=== PATIENT | female | born 1995 | race Hispanic/Latino ===

== ENCOUNTER 2019-01-04 15:04 | Emergency (ER) | payer MEDICARE ==
[~2019-01-04] VITALS: Ht 152.4 cm; Wt 51.7 kg
--- OUTSIDE RECORDS SUMMARY | 2019-01-04 15:07 | XMS REPORT ---
Author Author [facility] Address Unknown Phone Unavailable Care Team Providers Care Assistant Casino Shift Manager Name Role Phone Unavailable Unavailable Payers Payer Name Policy Type Policy Number Effective Date Expiration Date Problems This patient has no known problems. Allergies, Adverse Reactions, Alerts Allergy Name Allergy Type Status Severity Reaction(s) Onset Date Inactive Date Treating Clinician Comments No Known Allergies DA Active U 2018-08-24 00:00:00 No Known Allergies DA Active U 2016-02-05 00:00:00 Medications This patient has no known medications.
--- OUTSIDE RECORDS SUMMARY | 2019-01-04 15:07 | XMS REPORT | Clinical Summary ---
Author Author [facility] Address Unknown Phone Unavailable Care Team Providers Care Benefits Specialist Name Role Phone Rasta Pierce MD PCP Allergies No Known Allergies Medications End Date Status Medication Sig Dispensed Refills Start Date Active Take 1 tablet 0 vit,[id number] 29 by mouth mg iron- 1 mg tablet per daily. tablet 09/20/2018 ibuprofen (ADVIL,MOTRIN) Take 1 tablet 30 tablet 0 600 MG tablet (600 mg 9 total) by mouth every 6 (six) hours as needed (Cramping, Laceration or Incision Pain) for up to 30 days. Active Problems Problem Noted Date Anemia, unspecified 08/19/2018 08/19/2018 Encounters Care Team Description Date Type Specialty Jocelyn Perez MD 08/19/2018 [facility] Ob[facility]etrics and [facility]ne[facility] - Encounter 08/21/2018 Nimco Carranza, DO Dyspnea, unspecified type (Primary Dx) 04/24/2018 Emergency Emergency Medicine after 01/03/2018 Immunizations Name Dates Previously Given Next Due Tdap 08/19/2018 Family History Medical History Relation Name Comments Diabetes Maternal Grandmother Relation Name Status Comments Maternal Grandmother Social History Date Tobacco Use Types Packs/Day Years Used Never Smoker Smokeless Tobacco: Never Used Alcohol Use Drinks/Week oz/Week Comments No Alcohol Habits Answer Date Recorded How often do you have a drink containing alcohol? Never 08/19/2018 How many drinks containing alcohol do you have on Not asked a typical day when you are drinking? How often do you have six or more drinks on one Not asked occasion? Sex Assigned at Date Recorded Not on file Industry Job Start Date Occupation Not on file Not on file Not on file Travel End Travel History Travel Start No recent travel history available. Last Filed Vital Signs Time Taken Vital Sign Reading 08/21/2018 8:30 AM LOW PRESSURE BOILER TENDER Blood Pressure 114/59 08/21/2018 8:30 AM LOW PRESSURE BOILER TENDER Pulse 72 08/21/2018 8:30 AM LOW PRESSURE BOILER TENDER Temperature 36.6 C (97.8 F) 08/21/2018 8:30 AM LOW PRESSURE BOILER TENDER Respiratory Rate 18 08/20/2018 12:29 AM LOW PRESSURE BOILER TENDER Oxygen Saturation 98% - Inhaled Oxygen - Concentration 08/19/2018 7:33 AM LOW PRESSURE BOILER TENDER Weight 64.9 kg (143 lb) 08/19/2018 7:33 AM LOW PRESSURE BOILER TENDER Height 152.4 cm (5') 08/19/2018 7:33 AM LOW PRESSURE BOILER TENDER Body Mass Index 27.93 Plan of Treatment Health Maintenance Due Date Last Done Comments CHLAMYDIA SCREENING 01/15/2019 01/15/2018 INFLUENZA VACCINE 02/06/2019 Procedures Comments Procedure Name Priority Date/Time Associated Diagnosis HC COMPLETE BLD COUNT Routine 08/20/2018 W/AUTO DIFF 5:58 AM LOW PRESSURE BOILER TENDER HIV 1, 2 ANTIBODY STAT 08/19/2018 9:04 AM LOW PRESSURE BOILER TENDER TYPE AND SCREEN, STAT 08/19/2018 OBSTETRICAL PATIENT 9:04 AM LOW PRESSURE BOILER TENDER SYPHILIS TREPONEMAL IGG STAT 08/19/2018 9:04 AM LOW PRESSURE BOILER TENDER HEPATITIS B SURFACE STAT 08/19/2018 ANTIGEN 9:04 AM LOW PRESSURE BOILER TENDER HC COMPLETE BLD COUNT STAT 08/19/2018 W/AUTO DIFF 9:04 AM LOW PRESSURE BOILER TENDER URINE DRUGS OF ABUSE STAT 08/19/2018 SCREEN 7:50 AM LOW PRESSURE BOILER TENDER URINALYSIS SCREEN AND STAT 08/19/2018 MICROSCOPY, WITH REFLEX 7:50 AM LOW PRESSURE BOILER TENDER TO CULTURE URINE CULTURE STAT 08/19/2018 7:50 AM LOW PRESSURE BOILER TENDER CBC WITH PLATELET AND Routine 08/10/2018 DIFFERENTIAL RPR TITER WITH REFLEX TO Routine 08/10/2018 CONFIRMATION RPR TITER WITH REFLEX TO Routine 08/10/2018 CONFIRMATION BETA STREP SCREEN CULTURE Routine 08/01/2018 WITH MIMS BROTH CBC WITH PLATELET AND Routine 06/03/2018 DIFFERENTIAL XR CHEST 2 VW STAT 04/24/2018 7:24 PM CDT ESTIMATED GFR STAT 04/24/2018 7:03 PM CDT HCG QUANTITATIVE, SERUM STAT 04/24/2018 7:03 PM CDT CREATINE KINASE, TOTAL STAT 04/24/2018 (CPK) 7:03 PM CDT TROPONIN STAT 04/24/2018 7:03 PM CDT B NATRIURETIC PEPTIDE STAT 04/24/2018 7:03 PM CDT D-DIMER STAT 04/24/2018 7:03 PM CDT BASIC METABOLIC PANEL STAT 04/24/2018 7:03 PM CDT HC COMPLETE BLD COUNT STAT 04/24/2018 W/AUTO DIFF 7:03 PM CDT ECG 12-LEAD STAT 04/24/2018 6:58 PM CDT ECG ED PRELIMINARY Routine 04/24/2018 INTERPRETATION 6:44 PM CDT RUBELLA AB IGG Routine 01/28/2018 HIV 1, 2 ANTIBODY Routine 01/15/2018 RPR TITER WITH REFLEX TO Routine 01/15/2018 CONFIRMATION HEPATITIS B SURFACE Routine 01/15/2018 ANTIGEN CHLAMYDIA CULTURE Routine 01/15/2018 GONORRHOEAE CULTURE Routine 01/15/2018 after 01/03/2018 Results * CBC with platelet and differential (08/20/2018 5:58 AM LOW PRESSURE BOILER TENDER) Only the most recent of 5 results within the time period is included. WBC 9.0 4.2 - 11.0 k/uL [facility] RBC 3.40 (L) 4.04 - 5.86 m/uL [facility] HGB 9.0 (L) 11.5 - 15.3 g/dL [facility] HCT 29.6 (L) 34.0 - 45.0 % [facility] MCV 87.1 80.0 - 98.0 fL [facility] MCH 26.5 (L) 27.0 - 34.0 pg [facility] MCHC 30.4 (L) 31.5 - 36.5 g/dL [facility] RDW - SD 42.6 37.0 - 51.0 fL [facility] MPV 13.9 (H) 7.4 - 10.4 fL [facility] Platelet count 97 (L) 150 - 400 k/uL [facility] Nucleated RBC 0.00 /100 WBC [facility] Neutrophils 66.4 (H) 36.0 - 66.0 % [facility] Lymphocytes 22.3 (L) 24.0 - 44.0 % [facility] Monocytes 9.9 (H) 0.0 - 6.0 % [facility] Eosinophils 0.6 0.0 - 6.0 % [facility] Basophils 0.1 0.0 - 1.2 % [facility] Immature 0.7 0.0 - 1.0 % [place] granulocytes [facility] Specimen Blood Performing Organization Address City/State/Zipcode Phone Number [facility] [address] [place] [address] PATHOLOGY AND GENOMIC MEDICINE [facility] [address] * Syphilis treponemal IgG (08/19/2018 9:04 AM LOW PRESSURE BOILER TENDER) Syphilis Non-reactiveComment: Non-reactive [place] treponemal IgG Non-reactive: No serological [facility] evidence of Syphilis infection HOSPITAL Specimen Serum Performing Organization Address City/State/Zipcode Phone Number [facility] DEPARTMENT OF [address] [place] [address] PATHOLOGY AND GENOMIC MEDICINE [facility] [address] [place] [address] HOSPITAL * Type and screen, obstetrical patient (08/19/2018 9:04 AM LOW PRESSURE BOILER TENDER) Pathologist [facility] [place] ABO grouping O [facility] Rh type POS [facility] Antibody screen NEG [place] (gel) [facility] Specimen Blood Performing Organization Address City/State/Zipcode Phone Number [facility] OF [address] [place] [address] PATHOLOGY AND GENOMIC MEDICINE [facility] [address] * HIV 1, 2 antibody (08/19/2018 9:04 AM LOW PRESSURE BOILER TENDER) Only the most recent of 2 results within the time period is included. [facility] HIV 1, 2 Non-Reactive Non-reactive [place] antibody Comment: [facility] Starting from October 05 2015, [facility] 4th generation HIV screening HOSPITAL and confirmation assays are in use at [facility], consistent with the CDC-recommended algorithm. The screening test detects antibodies to HIV-1, HIV-2 and the p24 antigen. Positive screening results will be automatically reflexed to a HIV-1/HIV-2 differentiation assay. Indeterminant HIV-1 results will be further automatically reflexed to a nucleic acid test for detection of acute infection. Western blot will no longer be performed as a confirmation test. For a quick reference guide on the testing algorithm, please refer to: http://stacks.cdc.gov/view/cdc /57611. Specimen Blood Performing Organization Address City/[facility]/Zipcode Phone Number [facility] OF [address] [facility] [place] [address] PATHOLOGY AND GENOMIC MEDICINE [facility] [address] [place], [place] [id number] [place] [address] * Hepatitis B surface antigen (08/19/2018 9:04 AM LOW PRESSURE BOILER TENDER) Only the most recent of 2 results within the time period is included. [facility] Hepatitis B Non-reactive Non-reactive [place] surface Ag [facility] Specimen Blood Performing Organization Address City/State/Zipcode Phone Number [facility] OF [address] [place] [address] PATHOLOGY AND GENOMIC MEDICINE [place] [id number] [address] * Urinalysis screen and microscopy, with reflex to culture (08/19/2018 7:50 AM LOW PRESSURE BOILER TENDER) Specimen site Catheterized [facility] Color, UA Straw [facility] Appearance, UA Clear [facility] Specific 1.010 1.001 - 1.035 [place] gravity, [facility] pH, UA 8.0 5.0 - 8.5 [facility] Protein, UA Negative Negative [facility] Glucose, UA Negative Negative [facility] Ketones, UA Negative Negative [facility] Bilirubin, UA Negative Negative [facility] Blood, UA Large (A) Negative [facility] Nitrite, UA Negative Negative [facility] Urobilinogen, Negative <2.0 [facility] Leukocyte Negative Negative [place] esterase, UA [facility] Epithelial Moderate /HPF [place] cells, UA [facility] WBC, UA 2 0 - 5 /HPF [facility] RBC, UA >200 (H) 0 - 5 /HPF [facility] Bacteria, UA None seen None seen [facility] Yeast, UA None seen [facility] Yeast with None seen [place] [facility] Specimen Urine Performing Organization Address City/State/Zipcode Phone Number [facility] [address] [place] [phone] PATHOLOGY AND GENOMIC MEDICINE [place] [phone] [address] * Urine drugs of abuse screen (08/19/2018 7:50 AM LOW PRESSURE BOILER TENDER) Amphetamine Negative [place] screen, urine [facility] Barbiturate Negative [place] screen, urine [facility] Benzodiazepine Negative [place] screen, urine [facility] Cannabinoid Negative [place] screen, urine [facility] Cocaine screen, Negative [place] urine [facility] Methadone Negative [place] metabolite [facility] (EDDP), urine [facility] Opiates screen, Negative [place] urine [facility] Phencyclidine Negative [place] screen, urine [facility] Specimen Urine Performing Organization Address City/[facility]/Zipcode Phone Number [facility] OF [address] [place] [phone] PATHOLOGY AND GENOMIC MEDICINE [facility] [address] * Urine culture (08/19/2018 7:50 AM LOW PRESSURE BOILER TENDER) Urine culture SEE COMMENTComment: [place] Bacteriuria screen negative. [facility] Specimen Performing Organization Address City/[facility] Phone Number [facility] [place] [address] PATHOLOGY AND GENOMIC MEDICINE [facility] [address] * RPR titer with reflex to confirmation (08/10/2018) Only the most recent of 3 results within the time period is included. RPR (dx) w/refl Negative EXTERNAL LAB titer and NON-INTERFACED confirmatory testing Specimen Blood Performing Organization Address [facility] [place] [facility] Phone Number EXTERNAL LAB NON-INTERFACED * Beta strep screen culture with mims broth (08/01/2018) Strep gp B Negative EXTERNAL LAB culture NON-INTERFACED Specimen Vaginal Performing Organization Address [facility] [place] [facility] Phone Number EXTERNAL LAB NON-INTERFACED * XR Chest 2 Vw (04/24/2018 7:24 PM CDT) Specimen Narrative Performed At EXAMINATION:XR CHEST 2 VW RADIANT CLINICAL HISTORY:Shortness of breath TECHNIQUE:XR CHEST 2 VW COMPARISON:None. FINDINGS: Lines/tubes:None. Heart and mediastinum:Unremarkable Lungs:There is subsegmental atelectasis at the medial lung bases. There is no focal consolidation. There is no evidence of pulmonary edema. Pleura:There is no pleural effusion. There is no pneumothorax. Bones and Soft Tissues:Unremarkable. IMPRESSION: No acute cardiopulmonary abnormality. [facility]-[id number] Procedure Note Interface, Radiology Results Incoming - 04/24/2018 7:30 PM CDT EXAMINATION: XR CHEST 2 VW CLINICAL HISTORY: Shortness of breath TECHNIQUE: XR CHEST 2 VW COMPARISON: None. FINDINGS: Lines/tubes: None. Heart and mediastinum: Unremarkable Lungs: There is subsegmental atelectasis at the medial lung bases. There is no focal consolidation. There is no evidence of pulmonary edema. Pleura: There is no pleural effusion. There is no pneumothorax. Bones and Soft Tissues: Unremarkable. IMPRESSION: No acute cardiopulmonary abnormality. [facility]-[id number] Performing Organization Address City/[facility]/Zipcode Phone Number [facility] [address] [place] [address] * Estimated GFR (04/24/2018 7:03 PM CDT) [facility] Estimated GFR >=90 mL/min/1.73 m2 [facility] Comment: OF PATHOLOGY CatergoryUnitsInte AND GENOMIC rpretation MEDICINE G1 >=90 Normal or high G2 60-89Mildly decreased W3h38-27 Mildly to moderately decreased P1m51-61 Moderately to severely decreased G4 15-29Severely decreased G5 <15Kidney failure The eGFR was calculated using the Chronic Kidney Disease Epidemiology Collaboration (CKD-EPI) equation. Interpretation is based on recommendations of the National Kidney Foundation-Kidney Disease Outcomes Quality Initiative (NKF-KDOQI) published in 2014. Specimen Plasma specimen Performing Organization Address [facility] Mex[facility]ode Phone Number [address] [place] [address] PATHOLOGY AND [employer] [facility] * Troponin (04/24/2018 7:03 PM CDT) [facility] Troponin <0.30 0.00 - 0.30 ng/mL [facility] Comment: OF PATHOLOGY 0.11 - 1.49 AND [employer] ng/mlMiy MEDICINE indicate increased risk of acute coronary syndrome. >=1.5 ng/ml Consistent with acute myocardial infarction. The diagnostic value of a single normal or non-diagnostic result is questionable.Serial samples at 2-6 hour intervals are required to rule out acute myocardial injury. Specimen Plasma specimen Performing Organization Address City/[facility]/Zipcode Phone Number [facility] OF [address] [facility] [place] [address] PATHOLOGY AND [employer] MEDICINE * D-dimer (04/24/2018 7:03 PM CDT) [facility] D-dimer 0.89 (H) 0.00 - 0.40 ug/mL [facility] Comment: FEU OF PATHOLOGY Units are ug/ml Fibrinogen AND GENOMIC Equivalent Unit. MEDICINE When combined with low clinical probability, D-dimer results of less than 0.5 ug/ml FEU have a good negativepredictive value in excluding PE or DVT. For D-dimer results greater than 0.5ug/ml FEU further testing is indicated if PE or DVT is suspectedclinically. Elevated D-dimer results have been reported in DVT, PE, and DIC cases and may indicate the presence of a clot. D-dimer results may be elevated due to old age, , inflammatory diseases, trauma, post-operative states, sepsis, and malignancies. Specimen Blood Performing Organization Address [facility] [place] [address] PATHOLOGY AND [facility] MEDICINE * hCG quantitative, serum (04/24/2018 7:03 PM CDT) [facility] hCG 2,925 (H) 0 - 5 mIU/mL [facility] quantitative, Comment: OF PATHOLOGY serum EXPECTED RANGE: AND GENOMIC >25 mIU/mL seen in . MEDICINE For values 1-24: Indeterminate result.Recommend retesting in 72 hours. HCG doubling time for normal is about 2.5 days. Approx Gestational Age Approx. HCG Conc. (mIU/mL) 0-2 weeks 0-500 2-3 weeks 100-1000 3-4 weeks 500-6000 1-3 months 5000-200,000 2nd Trimester 5000-50,000 3rd Trimester 5000-50,000 Specimen Blood Performing Organization Address City/[facility]/Zipcode Phone Number [facility] OF [address] [place] [address] PATHOLOGY AND [facility] * B natriuretic peptide (04/24/2018 7:03 PM CDT) [facility] BNP <3 0 - 100 pg/mL [facility] OF PATHOLOGY AND [facility] Specimen Blood Performing Organization Address City/[facility] [place] [address] PATHOLOGY AND [facility] MEDICINE * Creatine kinase, total (CPK) (04/24/2018 7:03 PM CDT) [facility] Creatine kinase 39 26 - 192 U/L [facility] OF PATHOLOGY AND GENOMIC MEDICINE Specimen Plasma specimen Performing Organization Address City/[facility]/Zipcode Phone Number [facility] [address] [place] [address] PATHOLOGY AND GENOMIC MEDICINE * Basic metabolic panel (04/24/2018 7:03 PM CDT) [facility] Sodium 138 135 - 150 mEq/L [facility] OF PATHOLOGY AND GENOMIC MEDICINE Potassium 3.6 3.5 - 5.0 mEq/L [facility] OF PATHOLOGY AND GENOMIC MEDICINE Chloride 102 98 - 112 mEq/L [facility] OF PATHOLOGY AND GENOMIC MEDICINE CO2 23 (L) 24 - 31 mmol/L [facility] OF PATHOLOGY AND GENOMIC MEDICINE Anion gap 13@ANIO 7 - 15 mEq/L [facility] OF PATHOLOGY AND GENOMIC MEDICINE BUN 7 7 - 18 mg/dL [facility] OF PATHOLOGY AND GENOMIC MEDICINE Creatinine 0.40 (L) 0.50 - 0.90 mg/dL [facility] OF PATHOLOGY AND GENOMIC MEDICINE Glucose 79 65 - 100 mg/dL [facility] OF PATHOLOGY AND GENOMIC MEDICINE Calcium 9.2 8.3 - 10.2 mg/dL [facility] OF PATHOLOGY AND GENOMIC MEDICINE Specimen Plasma specimen Performing Organization Address [facility] Mex[facility]ode Phone Number [address] [address] PATHOLOGY AND [employer] MEDICINE * ECG 12 lead (04/24/2018 6:58 PM CDT) [facility] Ventricular 83 [facility] MUSE rate Atrial rate 83 [facility] WA interval 150 [facility] QRSD interval 78 [facility] QT interval 340 [facility] QTC interval 399 [facility] P axis 1 56 [facility] QRS axis 1 -4 [facility] T wave axis 39 [facility] EKG impression Normal sinus rhythm-Low [facility] voltage QRS-Cannot rule out Anterior infarct , age undetermined-Abnormal ECG-No previous ECGs available- Specimen Performing Organization Address City/[facility]/Zipcode Phone Number [facility] MUSE [address] [place] [address] * ECG ED Preliminary Interpretation - NOT AN ORDER (04/24/2018 6:44 PM CDT) Narrative Performed At Nimco Carranza DO 04/30/20189:08 AM ECG ED Preliminary Interpretation - Not an Order Performed by: NIMCO CARRANZA Authorized by: NIMCO CARRANZA ECG reviewed by ED Physician in the absence of a chief internal auditor: yes Interpretation: Interpretation: normal Rate: ECG rate:83 ECG rate assessment: normal Rhythm: Rhythm: sinus rhythm Ectopy: Ectopy: none QRS: QRS axis:Normal Conduction: Conduction: normal ST segments: ST segments:Normal T waves: T waves: normal * Rubella Ab IgG (01/28/2018) Rubella IgG Immune EXTERNAL LAB antibody NON-INTERFACED Specimen Blood Performing Organization Address [facility] [place] Phone Number EXTERNAL LAB NON-INTERFACED * Chlamydia culture (01/15/2018) Chlamydia Negative EXTERNAL LAB culture isolate NON-INTERFACED Specimen Swab Performing Organization Address [facility] [place] Phone Number EXTERNAL LAB NON-INTERFACED * Gonorrhoeae culture (01/15/2018) Gonorrhoeae Negative EXTERNAL LAB culture isolate NON-INTERFACED Performing Organization Address [facility] [place] Phone Number EXTERNAL LAB NON-INTERFACED after 01/03/2018 Insurance Type Payer Benefit Subscriber ID Effective Phone Address Plan / Dates Group [employer] userADgents COM HL xxxxxxxxx 2017-P [facility] Advance Directives Patient has advance care planning documents, and code status on file. For more i nformation, please contact: Yuri Mensah [address] [place] [address] Date Inactivated Comments Code Status Date Activated 08/21/2018 4:10 PM Full Code 08/19/2018 8:10 AM Code Status decision reached by: Patient 08/19/2018 8:10 AM Full Code 08/19/2018 7:53 AM Code Status decision reached by: Patient
== END 2019-01-04 15:13 | disposition left against medical advice (07) ==
LOC: ER 15:04
DX: R51 Headache (principal)

== ENCOUNTER 2019-02-25 18:14 | Emergency (ER) | payer MEDICARE, OTHER ==
[~2019-02-25] VITALS: Ht 152.4 cm; Wt 51.7 kg
--- OUTSIDE RECORDS SUMMARY | 2019-02-25 18:17 | XMS REPORT | Clinical Summary ---
Author Author [facility] Organization [facility] Address Unknown Phone Unavailable Care Team Providers Care Allergy Nurse Name Role Phone Rasta Pierce MD PCP Allergies No Known Allergies Medications End Date Status Medication Sig Dispensed Refills Start Date Active Take 1 tablet 0 vit,[id number] 29 by mouth mg iron- 1 mg [...] Date Type Specialty Jocelyn Perez MD 08/19/2018 [facility] Obstetrics and Gynecology - Encounter 08/21/2018 Nimco Carranza, DO Dyspnea, unspecified type (Primary Dx) 04/24/2018 Emergency Emergency Medicine after 02/24/2018 Immunizations Name Administration Dates Next Due Tdap 08/19/2018 Family History Medical History Relation Name Comments Diabetes Maternal Grandmother Relation Name Status Comments Maternal Grandmother Social History Date Tobacco Use Types Packs/Day Years Used Never Smoker Smokeless Tobacco: Never Used Drinks/Week oz/Week Comments Alcohol Use No Alcohol Habits Answer Date Recorded How [...] travel history available. Last Filed Vital Signs Reading Time Taken Comments Vital Sign 114/59 08/21/2018 8:30 AM MOBILE TESTER Blood Pressure 72 08/21/2018 8:30 AM MOBILE TESTER Pulse 36.6 C (97.8 F) 08/21/2018 8:30 AM MOBILE TESTER Temperature 18 08/21/2018 8:30 AM MOBILE TESTER Respiratory Rate 98% 08/20/2018 12:29 AM MOBILE TESTER Oxygen Saturation - - Inhaled Oxygen Concentration 64.9 kg (143 lb) 08/19/2018 7:33 AM MOBILE TESTER Weight 152.4 cm (5') 08/19/2018 7:33 AM MOBILE TESTER Height 27.93 08/19/2018 7:33 AM MOBILE TESTER Body Mass Index Plan of Treatment Health Maintenance Due Date Last Done Comments CHLAMYDIA SCREENING 01/15/2019 01/15/2018 INFLUENZA VACCINE 02/06/2019 Procedures Comments Procedure Name Priority Date/Time Associated Diagnosis HC COMPLETE BLD COUNT Routine 08/20/2018 W/AUTO DIFF 5:58 AM MOBILE TESTER HIV 1, 2 ANTIBODY STAT 08/19/2018 9:04 AM MOBILE TESTER TYPE AND SCREEN, STAT 08/19/2018 OBSTETRICAL PATIENT 9:04 AM MOBILE TESTER SYPHILIS TREPONEMAL IGG STAT 08/19/2018 9:04 AM MOBILE TESTER HEPATITIS B SURFACE STAT 08/19/2018 ANTIGEN 9:04 AM MOBILE TESTER HC COMPLETE BLD COUNT STAT 08/19/2018 W/AUTO DIFF 9:04 AM MOBILE TESTER URINE DRUGS OF ABUSE STAT 08/19/2018 SCREEN 7:50 AM MOBILE TESTER URINALYSIS SCREEN AND STAT 08/19/2018 MICROSCOPY, WITH REFLEX 7:50 AM MOBILE TESTER TO CULTURE URINE CULTURE STAT 08/19/2018 7:50 AM MOBILE TESTER CBC WITH PLATELET AND Routine 08/10/2018 DIFFERENTIAL [...] PRELIMINARY Routine 04/24/2018 INTERPRETATION 6:44 PM CDT after 02/24/2018 Results * CBC with platelet and differential (08/20/2018 5:58 AM MOBILE TESTER) Only the most recent of 5 results within the time period is included. WBC 9.0 4.2 - 11.0 k/uL [facility] RBC 3.40 (L) 4.04 - 5.86 m/uL [facility] HGB 9.0 (L) 11.5 - 15.3 g/dL [facility] HCT 29.6 (L) 34.0 - 45.0 % [facility] MCV 87.1 80.0 - 98.0 fL [facility] MCH 26.5 (L) 27.0 - 34.0 pg [facility] MCHC 30.4 (L) 31.5 - 36.5 g/dL [facility] RDW - SD 42.6 37.0 - 51.0 fL [facility] MPV 13.9 (H) 7.4 - 10.4 fL [facility] Platelet count 97 (L) 150 - 400 k/uL [facility] Nucleated RBC 0.00 /100 WBC [facility] Neutrophils 66.4 (H) 36.0 - 66.0 % [facility] Lymphocytes 22.3 (L) 24.0 - 44.0 % [facility] Monocytes 9.9 (H) 0.0 - 6.0 % [facility] Eosinophils 0.6 0.0 - 6.0 % [facility] Basophils 0.1 0.0 - 1.2 % [facility] Immature 0.7 0.0 - 1.0 % [place] granulocytes [facility] Specimen Blood Performing Organization Address City/[facility] [place] [address] PATHOLOGY AND GENOMIC MEDICINE [address] * Syphilis treponemal IgG (08/19/2018 9:04 AM MOBILE TESTER) Pathologist [facility] [place] Syphilis Non-reactiveComment: Non-reactive [place] treponemal IgG Non-reactive: No serological RESTORATIONIST evidence of Syphilis infection HOSPITAL Specimen Serum Performing Organization Address City/[facility]/Zipcode Phone Number [facility] DEPARTMENT [address] [place] [address] PATHOLOGY AND GENOMIC MEDICINE [address] * Type and screen, obstetrical patient (08/19/2018 9:04 AM MOBILE TESTER) ABO grouping O [facility] Rh type POS [facility] Antibody screen NEG [place] (gel) [facility] Specimen Blood Performing Organization Address City/[facility]/Zipcode Phone Number [facility] [address] [address] PATHOLOGY AND GENOMIC MEDICINE [place] [id number] [facility] [address] * HIV 1, 2 antibody (08/19/2018 9:04 AM MOBILE TESTER) Pathologist [facility] [place] HIV 1, 2 Non-Reactive Non-reactive [place] antibody Comment: [facility] Starting from October 05 2015, [facility] 4th generation HIV screening HOSPITAL and confirmation assays are in use at [facility], consistent with the CDC-recommended algorithm. [...] the testing algorithm, please refer to: http://stacks.cdc.gov/view/cdc /88655. Specimen Blood Performing Organization Address City/[facility]/Zipcode Phone Number [facility] OF [facility] [place] [address] PATHOLOGY AND GENOMIC MEDICINE [place] [id number] [address] * Hepatitis B surface antigen (08/19/2018 9:04 AM MOBILE TESTER) [facility] Hepatitis B Non-reactive Non-reactive [place] surface Ag [facility] Specimen Blood Performing Organization Address City/[facility]/Zipcode Phone Number [facility] OF [facility] [place] [address] PATHOLOGY AND GENOMIC MEDICINE [place] [phone] [facility] [address] * Urinalysis screen and microscopy, with reflex to culture (08/19/2018 7:50 AM MOBILE TESTER) Pathologist [facility] [place] Specimen site Catheterized [facility] Color, UA Straw [facility] Appearance, UA Clear [facility] Specific 1.010 1.001 - 1.035 [place] gravity, UA [facility] pH, UA 8.0 5.0 - 8.5 [facility] Protein, UA Negative Negative [facility] Glucose, UA Negative Negative [facility] Ketones, UA Negative Negative [facility] Bilirubin, UA Negative Negative [facility] Blood, UA Large (A) Negative [facility] Nitrite, UA Negative Negative [facility] Urobilinogen, Negative <2.0 [place] UA [facility] Leukocyte Negative Negative [place] esterase, UA [facility] Epithelial Moderate /HPF [place] cells, UA [facility] WBC, UA 2 0 - 5 /HPF [facility] RBC, UA >200 (H) 0 - 5 /HPF [facility] Bacteria, UA None seen None seen [facility] Yeast, UA None seen [facility] Yeast with None seen [facility] Specimen Urine Performing Organization Address City/[facility] Centercode Phone Number [facility] [place] [address] [place] [address] PATHOLOGY AND GENOMIC MEDICINE [place] [address] [address] * Urine drugs of abuse screen (08/19/2018 7:50 AM MOBILE TESTER) Pathologist [facility] [place] Amphetamine Negative [place] screen, urine [facility] Barbiturate Negative [place] screen, urine [facility] Benzodiazepine Negative [place] screen, urine [facility] Cannabinoid Negative [place] screen, urine [facility] Cocaine screen, Negative [facility] urine [facility] Methadone Negative [facility] metabolite [facility] (EDDP), urine [facility] Opiates screen, Negative [place] urine [facility] Phencyclidine Negative [place] screen, urine [facility] Specimen Urine Performing Organization Address City/[facility] Cent[facility]ode Phone Number [facility] [place] [address] [place] [address] PATHOLOGY AND GENOMIC MEDICINE [place] [address] [address] * Urine culture (08/19/2018 7:50 AM MOBILE TESTER) Pathologist [facility] [place] Urine culture SEE COMMENTComment: [place] Bacteriuria screen negative. [facility] Specimen Performing Organization Address [facility] Centercoct Phone Number [facility] OF [address] [place] [address] PATHOLOGY AND GENOMIC MEDICINE [facility] [address] [place], [place] [id number] [place] [address] * RPR titer with reflex to confirmation (08/10/2018) Only the most recent of 2 results within the time period is included. RPR (dx) w/refl Negative EXTERNAL LAB titer and NON-INTERFACED confirmatory testing Specimen Blood Performing Organization Address [facility] Centercode Phone Number EXTERNAL LAB NON-INTERFACED * Beta strep screen culture with mims broth (08/01/2018) Strep gp B Negative EXTERNAL LAB culture NON-INTERFACED Specimen Vaginal Performing Organization Address [facility] Phone Number EXTERNAL LAB NON-INTERFACED * XR [...] Soft Tissues:Unremarkable. IMPRESSION: No acute cardiopulmonary abnormality. [facility]-[id number] Procedure Note Hm Interface, Radiology Results Incoming - 04/24/2018 7:30 [...] Tissues: Unremarkable. IMPRESSION: No acute cardiopulmonary abnormality. [facility]-[id number] Performing Organization Address [facility]/Zipcode Phone Number [facility] [address] [place] [address] * Estimated GFR (04/24/2018 7:03 PM CDT) [facility] Estimated GFR >=90 mL/min/1.73 m2 [facility] Comment: OF PATHOLOGY CatergoryUnitsInte AND GENOMIC rpretation MEDICINE G1 >=90 Normal or high G2 60-89Mildly decreased [id number] Mildly to moderately decreased [id number] Moderately to severely decreased G4 15-29Severely decreased G5 <15Kidney failure The eGFR was calculated using the Chronic Kidney Disease Epidemiology Collaboration (CKD-EPI) equation. Interpretation is based on recommendations of the National Kidney Foundation-Kidney Disease Outcomes Quality Initiative (NKF-KDOQI) published in 2014. Specimen Plasma specimen Performing Organization Address City/State/Zipcode Phone Number [facility] OF [address] [facility] [place] [address] PATHOLOGY AND [facility] * Troponin (04/24/2018 7:03 PM CDT) [facility] Troponin <0.30 0.00 - 0.30 ng/mL [facility] Comment: OF PATHOLOGY 0.11 - 1.49 AND GENOMIC ng/mlMay MEDICINE indicate increased risk of acute coronary syndrome. >=1.5 ng/ml Consistent with acute myocardial infarction. The diagnostic value of a single normal or non-diagnostic result is questionable.Serial samples at 2-6 hour intervals are required to rule out acute myocardial injury. Specimen Plasma specimen Performing Organization Address City/State/Zipcode Phone Number [facility] OF [address] [facility]. [place] [id number] [place] [address] AND [facility] * D-dimer (04/24/2018 7:03 PM CDT) [facility] D-dimer 0.89 (H) 0.00 - 0.40 ug/mL [facility] Comment: FEU OF PATHOLOGY Units are [...] and malignancies. Specimen Blood Performing Organization Address [facility] [place] [address] PATHOLOGY AND GENOMIC MEDICINE * hCG quantitative, serum (04/24/2018 7:03 PM CDT) hCG 2,925 (H) 0 - 5 mIU/mL [facility] quantitative, Comment: OF PATHOLOGY serum EXPECTED [...] Trimester 5000-50,000 Specimen Blood Performing Organization Address [facility] [place] [address] PATHOLOGY AND GENOMIC MEDICINE * B natriuretic peptide (04/24/2018 7:03 PM CDT) Pathologist [facility] [place] BNP <3 0 - 100 pg/mL [facility] OF PATHOLOGY AND GENOMIC MEDICINE Specimen Blood Performing Organization Address [facility] [place] [address] PATHOLOGY AND GENOMIC MEDICINE * Creatine kinase, total (CPK) (04/24/2018 7:03 PM CDT) Pathologist [facility] [place] Creatine kinase 39 26 - 192 U/L [facility] OF PATHOLOGY AND GENOMIC MEDICINE Specimen Plasma specimen Performing Organization Address City/[facility] [place] [address] PATHOLOGY AND GENOMIC MEDICINE * Basic metabolic panel (04/24/2018 7:03 PM CDT) Sodium 138 135 - 150 mEq/L [facility] OF PATHOLOGY AND GENOMIC MEDICINE Potassium 3.6 3.5 - 5.0 mEq/L [facility] OF PATHOLOGY AND GENOMIC MEDICINE [place] 102 98 - 112 mEq/L [facility] OF PATHOLOGY AND GENOMIC MEDICINE CO2 23 (L) 24 - 31 mmol/L [facility] OF PATHOLOGY AND GENOMIC MEDICINE Anion gap 13@ANIO 7 - 15 mEq/L [facility] OF PATHOLOGY AND GENOMIC MEDICINE BUN 7 7 - 18 mg/dL [facility] OF PATHOLOGY AND GENOMIC MEDICINE Creatinine 0.40 (L) 0.50 - 0.90 mg/dL [facility] OF PATHOLOGY AND GENOMIC MEDICINE Glucose 79 65 - 100 mg/dL [facility] OF PATHOLOGY AND GENOMIC MEDICINE Calcium 9.2 8.3 - 10.2 mg/dL [facility] OF PATHOLOGY AND GENOMIC MEDICINE Specimen Plasma specimen Performing Organization Address City/State/[facility] Centercode Phone Number [facility] [address] [place] [address] PATHOLOGY AND GENOMIC MEDICINE * ECG 12 lead (04/24/2018 6:58 PM CDT) Ventricular 83 [facility] rate Atrial rate 83 [facility] DC interval 150 [facility] QRSD interval 78 [facility] QT interval 340 [facility] QTC interval 399 [facility] P axis 1 56 [facility] QRS axis 1 -4 [facility] T wave axis 39 [facility] EKG impression Normal sinus rhythm-Low [facility] voltage QRS-Cannot rule out Anterior infarct , age undetermined-Abnormal ECG-No previous ECGs available- Specimen Performing Organization Address City/[facility] Centercode Phone Number [facility] MUSE [address] [place] [address] * ECG ED Preliminary Interpretation - NOT AN ORDER (04/24/2018 6:44 PM CDT) Narrative Performed At Nimco Carranza DO 04/30/20189:08 AM ECG ED Preliminary Interpretation - Not an Order Performed by: NIMCO CARRANZA Authorized by: NIMCO CARRANZA ECG reviewed by ED Physician in the absence of a ash kier boiler: yes Interpretation: Interpretation: normal Rate: ECG rate:83 ECG rate assessment: normal Rhythm: Rhythm: sinus rhythm Ectopy: Ectopy: none QRS: QRS axis:Normal Conduction: Conduction: normal ST segments: ST segments:Normal T waves: T waves: normal after 02/24/2018 Insurance Type Payer Benefit Subscriber ID Effective Phone Address Plan / Dates Group [facility] [employer] [facility] xxxxxxxxx 12/07/2017-P [facility]/[employer] [facility] Advance Directives For more information, please contact: [phone] Patient Vector Control Specialist Explanation Type Date Recorded Advance Directives, 04/24/2018 6:30 PM Living Will and Medical Power of Security Shift Supervisor Date Inactivated Comments Code Status Date Activated 08/21/2018 4:10 PM Full Code 08/19/2018 8:10 AM Code Status decision reached by: Patient 08/19/2018 8:10 AM Full Code 08/19/2018 7:53 AM Code Status decision reached by: Patient
--- NOTE | 2019-02-25 19:01 | NUR ---
SPOKE TO JAMES IN RAD, WILL CALL U/S AT THIS TIME
[2019-02-25 19:07] LABS: BASOPHILS % 0.2 % (0.0-1.0); EOSINOPHILS # (AUTO) 0.1 (0.0-0.4); EOSINOPHILS % 0.8 % (0.0-6.0); HEMATOCRIT 32.1 % (34.2-44.1); HEMOGLOBIN 11.1 g/dL (12.0-16.0); LYMPHOCYTES # (AUTO) 1.3 (1.0-3.2); LYMPHOCYTES % 19.8 % (18.0-39.1); MEAN CORPUSCULAR HEMOGLOBIN 29.6 pg (28-32); MEAN CORPUSCULAR HGB CONC 34.6 g/dL (31-35); MEAN CORPUSCULAR VOLUME 85.6 fL (81-99); MONOCYTES # (AUTO) 0.5 (0.2-0.8); MONOCYTES % 7.1 % (4.4-11.3); NEUTROPHILS # (AUTO) 4.5 (2.1-6.9); NEUTROPHILS % 71.8 % (38.7-80.0); PLATELET COUNT 119 x10e3/uL (140-360); RED BLOOD COUNT 3.75 x10e6/uL (3.6-5.1); RED CELL DISTRIBUTION WIDTH 13.3 % (11.7-14.4)
[2019-02-25 19:14] LABS: BILIRUBIN,URINE NEGATIVE (NEGATIVE); CLARITY,URINE CLEAR (CLEAR); COLOR,URINE YELLOW (YELLOW); KETONES,URINE NEGATIVE (NEGATIVE); LEUKOCYTE ESTERASE ,URINE TRACE (NEGATIVE); NITRITE,URINE NEGATIVE (NEGATIVE); PROTEIN,URINE DIPSTICK NEGATIVE (NEGATIVE); URINE UROBILINOGEN 0.2 mg/dL (0.2 - 1)
[2019-02-25 19:24] LABS: ALANINE AMINOTRANSFERASE 9 IU/L (0-55); ALBUMIN 3.6 g/dL (3.5-5.0); ALBUMIN/GLOBULIN RATIO 1.2 (0.8-2.0); ALKALINE PHOSPHATASE 43 IU/L (40-150); ANION GAP 13.1 mmol/L (8-16); BLOOD UREA NITROGEN 7 mg/dL (7-26); BUN/CREATININE RATIO 12 (6-25); CALCIUM 9.6 mg/dL (8.4-10.2); CARBON DIOXIDE 22 mmol/L (22-29); CHLORIDE 104 mmol/L (98-107); EST GLOMERULAR FILTRATION RATE > 60 ML/MIN (60-); GLUCOSE 127 mg/dL (74-118); POTASSIUM 3.1 mmol/L (3.5-5.1); SODIUM 136 mmol/L (136-145)
[2019-02-25 19:31] LABS: AMORPHOUS SEDIMENT,URINE MODERATE (FEW); BACTERIA,URINE MODERATE /HPF; EPITHELIAL CELLS,URINE FEW /LPF; MUCUS,URINE MODERATE (RARE); RBC,URINE 0-5 /HPF (0-5)
--- NOTE | 2019-02-25 20:15 | Diagnostic Imaging Report ---
Pelvic OB ultrasound History: Spotting Previous US: None at this institution Gestational age based on outside exam: 14 weeks 1 day. Findings: There is a single intrauterine in variable position. The cardiac activity is normal and calculated to be 150 bpm. The placenta is located anterior. There is no evidence of placenta previa. No evidence of subchorionic hemorrhage. There is normal amniotic fluid. The cervical length is 3.0 cm. The cervical os is closed. The measurements are as follows: BPD: 2.5 cm which equals 14 weeks 3 days HC: 9.3 cm which equals 14 weeks 2 days FL: 1.2 cm which equals 13 weeks 5 days AC: 7.2 cm which equals 13 weeks 6 days. Detailed anatomic survey was not performed. No gross abnormality identified. No pelvic fluid identified. IMPRESSION: 1. Single, live intrauterine with estimated gestational age by ultrasound of 14 weeks 1 days. No discrepancy to patient's LMP. Recommend detailed anatomic survey in 4-6 weeks. 2. Normal cervix. No abnormalities to explain spotting. 3. Follow-up in 4-6 weeks for detailed anatomic survey. Thank you for your referral. Signed by: Dr. Kristy Dobbs MD on 02/25/2019 8:12 PM
[2019-02-25] MEDS ORDERED: MACROBID 100 M100 MG PO (20:56)
[2019-02-25] MEDS ORDERED: POTASSIUM CHLORIDE 10MEQ EA PO ONE (21:00)
[2019-02-25] MEDS ORDERED: POTASSIUM CHLORIDE 20 MEQ TAB CR PO ONE ×2 (21:06→21:15)
== END 2019-02-25 21:19 | disposition home or self-care (01) ==
LOC: ER 18:14
DX: O26.852 Spotting complicating pregnancy, second trimester (principal); Z3A.14 14 weeks gestation of pregnancy; O23.12 Infections of bladder in pregnancy, second trimester
CPT/HCPCS: 36415; 76815; 80053; 81001; 84702; 85025; 86900; 99284